=== PATIENT | male | born 1945 | race Caucasian/White ===

== ENCOUNTER → 2021-03-18 12:56 | Outpatient (BNVA) | payer MEDICARE, SELFPAY | PROVIDERS: PCP Family Medicine; Visit Provider Urology | DX: N40.1 Benign prostatic hyperplasia with lower urinary tract symptoms (principal); N13.8 Other obstructive and reflux uropathy; R33.9 Retention of urine, unspecified; R35.1 Nocturia; R97.20 Elevated prostate specific antigen [PSA]; I10 Essential (primary) hypertension | CPT/HCPCS: 51798; 99212 ==

== ENCOUNTER → 2022-03-24 12:59 | Outpatient (BNVA) | payer MEDICARE, SELFPAY | PROVIDERS: PCP Family Medicine; Visit Provider Urology | DX: R33.9 Retention of urine, unspecified (principal); N40.1 Benign prostatic hyperplasia with lower urinary tract symptoms | CPT/HCPCS: 51798; 99212 ==

== ENCOUNTER → 2022-06-16 13:21 | Outpatient (BNVA) | payer MEDICARE, SELFPAY | PROVIDERS: PCP Family Medicine; Visit Provider Urology | DX: N40.1 Benign prostatic hyperplasia with lower urinary tract symptoms (principal); R33.9 Retention of urine, unspecified | CPT/HCPCS: 52000; 99212 ==

== ENCOUNTER 2022-08-03 08:15 | Day surgery (SDC) | payer MEDICARE, SELFPAY ==
[2022-07-29 13:56] VITALS: BMI 25.8
--- NOTE | 2022-07-31 11:49 | HO.ANESPROP2 ---
Documented by User: Earline Choi NP 07/31/22 11:50 HPI - Anesthesia Eval Consult details Narrative: 76yo M for Laser Ablation Prostate w/Green Light PMFSH Active Problems Active Problems: All Active Problems (Updated 03/18/21 @ 13:30 by Randy Jolly MD) Incomplete emptying of bladder (Acute) Elevated PSA (Acute) Benign prostatic hyperplasia with lower urinary tract symptoms (Acute) Past Medical History Medical History Benign prostatic hyperplasia with lower urinary tract symptoms Elevated PSA HTN (hypertension) Incomplete emptying of bladder Lyme disease Meningioma Nocturia Prostatism Surgical History Surgical History (Updated 08/03/22 @ 09:12 by Ginger Hatch RN) History of appendectomy History of back surgery History of surgery History of tonsillectomy and adenoidectomy History of transurethral resection of prostate Hx of breast lump removal Hx of colonoscopy Hx of melanoma excision S/P anal fissurectomy Social History Social History Are you a primary aged or disabled care worker to a significant other at home: No Do you presently have visiting nurse or other home services: No Have you been hit, kicked, punched, or otherwise hurt by someone within the past year? If so, by whom?: No Are you DNR?: No Advance Directives: No Advance Directives Information Provided: Yes (HCP - patients ) Advance Directives on File: No Recently lost weight without trying: No Eating poorly because of decreased appetite: No Nutrition Risks: No Nutritional Risk Meds Allergies Allergy/AdvReac Type Severity Reaction Status Date / Time No Known Allergies Allergy Verified 07/29/22 11:57 Home Medications Medication Instructions Recorded Confirmed Last Taken Type losartan 25 mg tablet 25 mg PO DAILY 03/18/21 07/29/22 08/02/22 History mupirocin 2 % topical ointment 1 appl topical DAILY 03/18/21 08/03/22 08/02/22 History aspirin 81 mg tablet,delayed 81 mg PO DAILY 07/29/22 07/29/22 07/26/22 History release ascorbic acid 1,000 1 tab PO DAILY 08/03/22 08/03/22 07/26/22 History mg-bioflavonoids 100 mg tablet, extended release astaxanthin 4 mg capsule 10 mg PO DAILY 08/03/22 08/03/22 07/26/22 History milk thistle 200 mg capsule 250 mg PO DAILY 08/03/22 08/03/22 07/26/22 History tumeric 100 mg-bucky 150 mg-olive 1 cap PO DAILY 08/03/22 08/03/22 07/26/22 History 50 mg-oreg 150 mg-caprylate capsule vitamin B complx#0-hqzw-CD-vit 1 tab PO DAILY 08/03/22 08/03/22 07/26/22 History C-vit E 100 mg-1 mg-60 mg-5 unit tablet vitamins A,C,F-rqyb-uxkegf 14,320 1 cap PO DAILY 08/03/22 08/03/22 07/26/22 History unit-226 mg-200 unit capsule (PreserVision AREDS) Exam Exam Date and Time: July 31, 2022 1149 Height,Weight and Vital Signs: Height 5 ft 9 in Weight 79.379 kg Assessment and Plan Assessment Anesthesia Assessment: Chart Reviewed Documented by User: Ting Lindo MD 08/03/22 13:30 PMFSH Past Medical History Medical History Benign prostatic hyperplasia with lower urinary tract symptoms Elevated PSA HTN (hypertension) Incomplete emptying of bladder Lyme disease Meningioma Nocturia Prostatism Family History Family history of problems with anesthesia: No Surgical History Surgical History (Updated 08/03/22 @ 09:12 by Ginger Hatch RN) History of appendectomy History of back surgery History of surgery History of tonsillectomy and adenoidectomy History of transurethral resection of prostate Hx of breast lump removal Hx of colonoscopy Hx of melanoma excision S/P anal fissurectomy History of Problems with Anesthesia: No Social History Social History Are you a primary aged or disabled care worker to a significant other at home: No Do you presently have visiting nurse or other home services: No Have you been hit, kicked, punched, or otherwise hurt by someone within the past year? If so, by whom?: No Are you DNR?: No Advance Directives: No Advance Directives Information Provided: Yes (HCP - patients ) Advance Directives on File: No Recently lost weight without trying: No Eating poorly because of decreased appetite: No Nutrition Risks: No Nutritional Risk Meds Allergies Allergy/AdvReac Type Severity Reaction Status Date / Time No Known Allergies Allergy Verified 07/29/22 11:57 Home Medications Medication Instructions Recorded Confirmed Last Taken Type losartan 25 mg tablet 25 mg PO DAILY 03/18/21 07/29/22 08/02/22 History mupirocin 2 % topical ointment 1 appl topical DAILY 03/18/21 08/03/22 08/02/22 History aspirin 81 mg tablet,delayed 81 mg PO DAILY 07/29/22 07/29/22 07/26/22 History release ascorbic acid 1,000 1 tab PO DAILY 08/03/22 08/03/22 07/26/22 History mg-bioflavonoids 100 mg tablet, extended release astaxanthin 4 mg capsule 10 mg PO DAILY 08/03/22 08/03/22 07/26/22 History milk thistle 200 mg capsule 250 mg PO DAILY 08/03/22 08/03/22 07/26/22 History tumeric 100 mg-bucky 150 mg-olive 1 cap PO DAILY 08/03/22 08/03/22 07/26/22 History 50 mg-oreg 150 mg-caprylate capsule vitamin B complx#7-xzbb-XA-vit 1 tab PO DAILY 08/03/22 08/03/22 07/26/22 History C-vit E 100 mg-1 mg-60 mg-5 unit tablet vitamins A,C,S-nksp-dxbpuv 14,320 1 cap PO DAILY 08/03/22 08/03/22 07/26/22 History unit-226 mg-200 unit capsule (PreserVision AREDS) Exam Airway Mallampati Class: III TM Dist: >3cm Neck ROM: Full Heart: rrr Lungs: cta Assessment and Plan Assessment Anesthesia Assessment: Anesthesia Plan Discussed Final Anesthetic Review Family History of Problems with Anesthesia: No History of Problems with Anesthesia: No NPO: Yes ASA Class: II Final Preanesthetic Review: No Changes in Pt Med Stat, Meds/Allgs Chart Reviewed, Consent Obtained/Reviewed and Anes Risks/Benef Reviewed Patient Risk: Low Procedure Risk: Low Anesthetic Plan Anesthetic Plan: GA Disposition: Standard PACU
[2022-08-03] VITALS (7 sets, daily range): BP systolic 158–181; BP diastolic 97–105; PULSE 76–82; RESP 16–20; TEMP 36.6–37; O2SAT 97–100
[2022-08-03] MEDS: Acetaminophen Supp 650 MG SUPP.RECT PR (08:58)
[2022-08-03] MEDS: Lactated Ringers 1,000 ML 100 ML IVCONT (08:58)
--- NOTE | 2022-08-03 12:49 | MHC.SHP ---
Pre-Procedural Eval Section A Date of Service: 08/03/22 The patient is an INPATIENT: No Changes since office visit: No Cold of Flu in the past 2 weeks, No New Medical Problems, No Changes in Medication and No Patient answered all questions The History & Physical has been completed within 30 days and I have reviewed it.: Yes Section B Chief Complaint: bph Details of Present Illness: recurrent BPH Plan for laser prostatectomy Present Medications: see Short Stay Collaborative assessment Medical History: No relevant PMH History of Previous Operations: Relevant previous surgery/procedure and date(s) Allergies: Allergies Allergy/AdvReac Type Severity Reaction Status Date / Time No Known Allergies Allergy Verified 07/29/22 11:57 Review of Systems Sugical H&P ROS: Negative: Constitution, Cardiovascular, Respiratory, Neurological, Psychiatric, Hem-Onc, Allergic/Immunologic, Gastrointestinal, Genitourinary, Musculoskeletal, Integumentary, Endocrine and Eyes/Ears/Nose/Throat Exam Surgical H&P Exam: Normal: HEENT, Normal: Heart, Normal: Lungs, Normal: Extremities, Normal: Abdomen, Normal: Skin and Normal: Neurological Plan Diagnosis/Plan: Unchanged ( recurrent BPH, laser prostatectomy) I have reviewed the history and physical and performed a pertinent physical examination on my patient. No changes have occurred unless specified. Time Spent With Patient Time: Total time managing care of this patient today ____ minutes.
--- NOTE | 2022-08-03 14:36 | W.PM.OPN ---
Operative Note Operative Note Date of Service: 08/03/22 Narrative: PreOperative Diagnosis: Bladder outlet obstruction Post Operative Diagnosis: Bladder outlet obstruction Procedure: GreenLight Laser Enucleation of the prostate Surgeon: Dr Randy Jolly Anesthesia: General Indications for procedure: Regrowth right side History of bladder outlet obstruction. Treated with alpha-ansley and other medications. Still with symptoms. On cystoscopy in office has trilobar prostate. Recommendation for prostate procedure with laser enucleation of prostate. It has been discussed. Focus was placed on development of retrograde examination which is a normal part of this procedure. Procedure: After informed consent was verified the patient was brought to the operating room and placed in a supine position. Anesthesia was administered per protocol. Patient was placed in modified dorsal lithotomy position and prepped and draped in a sterile fashion. Safety pause time-out was confirmed. Antibiotics have been given. Twenty-four Andorran laser cystoscope was inserted per urethra. No abnormalities found the anterior posterior urethra. The bladder was filled on both ureteric orifices were seen in normal position away from our area of interest. Using a GreenLight laser settings of 80 w incisions were made at the 5 and 7 o'clock position. They were taken down and then laterally on each side. They were brought from the bladder neck down to the level of the veru. These defined the lateral aspects of the median lobe area. The median lobe was ablated and enucleated tissue removed. Once the median lobe area had been cleaned attention was directed to the lateral lobes. We started with the patient's left lateral lobe. Firstly the 05:00 o'clock groove was further developed. This was moved in the lateral position to undermine the tissue on the lateral side. Focus was then placed on the laser at the 1 o'clock position in developing a secondary groove down to the level of bladder fibers. The intervening tissue between these 2 grooves was removed with a combination of enucleation ablation working from the apex toward the bladder neck. A similar procedure was repeated on the patient's right-hand side. Right side had significant tissue When this was completed debris and pieces of prostate removed from the bladder. Both ureteric orifices were reviewed again in shown to be patent in away from any areas of energy damage. The apical area was reviewed in any stray ooze was controlled. once bladder was decompressed some bleeding did start. Did seem to be associated with apical neck area. A 22 [place]ran 30 cc balloon Figueroa catheter was placed over stylet into the bladder. Clear efflux was obtained on irrigation. 50 cc was placed in the balloon and gentle traction was placed. A snap was used to hold tension once the patient will be moved and transported. Once transportation its finish this clamp will be removed. He tolerated procedure well was extubated in the operating and transferred in a stable condition to the recovery area. Total Power 335 kW Pathology: Prostate tissue Drains: Figueroa catheter
== END 2022-08-03 16:10 ==
LOC: HO.SSS 08:15
PROVIDERS: PCP Family Medicine; Visit Provider Urology
PROC: (CPT 52648; principal; 2022-08-03 10:50)
DX: N40.1 Benign prostatic hyperplasia with lower urinary tract symptoms (principal); N32.0 Bladder-neck obstruction; R33.9 Retention of urine, unspecified; R97.20 Elevated prostate specific antigen [PSA]; R39.12 Poor urinary stream; I10 Essential (primary) hypertension; Z79.899 Other long term (current) drug therapy; Z87.440 Personal history of urinary (tract) infections
CPT/HCPCS: 52649; 88305; J0330; J1100; J1885; J1956; J2405; J3010

== ENCOUNTER → 2022-08-06 09:24 | Outpatient (BNVA) | payer MEDICARE, SELFPAY | PROVIDERS: PCP Family Medicine; Visit Provider Urology | DX: N40.1 Benign prostatic hyperplasia with lower urinary tract symptoms (principal) | CPT/HCPCS: 51700; 51798 ==

== ENCOUNTER → 2022-09-11 12:55 | Outpatient (BNVA) | payer MEDICARE, SELFPAY | PROVIDERS: PCP Family Medicine; Visit Provider Urology | DX: Z48.816 Encounter for surgical aftercare following surgery on the genitourinary system (principal); N40.1 Benign prostatic hyperplasia with lower urinary tract symptoms; R33.8 Other retention of urine; R97.20 Elevated prostate specific antigen [PSA] | CPT/HCPCS: 51798; 99212 ==

== ENCOUNTER 2023-03-23 10:07 | Outpatient (AMB) | payer MEDICARE, SELFPAY ==
--- NOTE | 2023-03-23 10:07 | A.OFFVIS_ITS ---
Intake Intake Visit Reasons: 6M PSA(set) Intake Note: Patient is present for Telephone PSA Urology Med: Finasteride, Antibiotic Allergy: None Blood Thinner: Aspirin [facility]: [facility] Allergies No Known Allergies Allergy (Verified 03/23/23 10:09) Medication List - Last Reconciled 03/23/23 by Randy Jolly MD ascorbic acid-bioflavonoids 1,000-100 mg 1 tab PO DAILY aspirin 81 mg PO DAILY astaxanthin 10 mg PO DAILY losartan 25 mg PO DAILY milk thistle 250 mg PO DAILY mupirocin 2% 1 appl topical DAILY tramadol 50 mg PO Q6H PRN ksxinhi-lvsq-hdllw-oreg-capryl 100 mg-150 mg- 50 mg-150 mg 1 cap PO DAILY vit B cmplx #2-tagl-NK-vitC,E 100-1-60-5 td-iq-fr-unit 1 tab PO DAILY vitamins A,C,H-ujaj-ecjmhx 4,296 mcg-226 mg-90 mg (PreserVision AREDS) 1 cap PO DAILY HPI HPI Comments History of Present Illness Details Mr Sainz is a very pleasant male. He is a patient of . He is seen for the following urologic conditions. - lower urinary tract symptoms Telemedicine Evaluation 15 min Consultation [employer] Video attempted Six month follow-up PSA 03/10 0.3 Information provided regarding pelvic floor therapy He will be following up with urologist closer to where he is currently living Lower Urinary Tract Symptoms:? Current visit is for?Happy with his current urinary performance ?- Initial diagnosis after retention following spinal surgery with Dr Coburn October 2013 ?- Prior history of recurrent UTI ?- TRUS biopsy in 2006 and 2012 for elevated PSA.? Current treatment includes?observation.? Prior treatments include?procedure, TURP 06/01, GLP 07/10 ? Prostate Symptom Score?Mild (0-8), Bother 2.? Symptoms include?incomplete emptying, weak stream, and are stable.? Prior Prostate Score?mild.? PSA?PSA 05/31 4.68, ?12/31 1.73, 04/04 2.0, 10/03 2.1, 10/04 1.7, 01/06 1.5, 03/09 1.7 ? Prostate volume?30-50gm.? Testing at next visit will include?Prostate Symptom Score, uroflow, bladder scan.? Treatment plan?- 12m f/u PFS Medical History Benign prostatic hyperplasia with lower urinary tract symptoms Elevated PSA HTN (hypertension) Incomplete emptying of bladder Lyme disease Meningioma Nocturia Prostatism Surgical History History of appendectomy History of back surgery History of surgery History of tonsillectomy and adenoidectomy History of transurethral resection of prostate Hx of breast lump removal Hx of colonoscopy Hx of melanoma excision S/P anal fissurectomy Social History Are you a primary technical healthcare consultant to a significant other at home: No Do you presently have visiting nurse or other home services: No Review of Systems Const All systems reviewed & are unremarkable except as noted in HPI and below Reports no additional complaints Resp Reports no additional complaints GI Reports no additional complaints Reports as per HPI Musc Reports no additional complaints Physical Exam Telemedicine evaluation Appropriate responses Regular breathing rate and rhythm HEENT Head: Yes normal to inspection Ears: hearing grossly normal bilaterally Eyes General: appearance normal, both eyes and all related structures Neck Neck: Yes normal visual inspection Chest Chest palpation & inspection: normal inspection of the chest Resp Effort & Inspection: normal respiratory effort and able to speak in complete sentences Assessment & Plan Assessment & Plan (1) Benign prostatic hyperplasia with lower urinary tract symptoms: Code(s): N40.1 - Benign prostatic hyperplasia with lower urinary tract symptoms Plan P.r.n. follow-up Pelvic floor exercises provided Medications: Discontinued ciprofloxacin HCl Discontinued Reason: Patient Completed Course 250 mg PO DAILY 5 days 5 tabs 0RF tranexamic acid Discontinued Reason: Doctor's Order 650 mg PO BID 5 days 10 tabs 0RF finasteride Discontinued Reason: Patient Completed Course 5 mg PO DAILY 90 days 90 tabs 0RF N32.0 - Bladder-neck obstruction, N40.1 - Benign prostatic hyperplasia with lower urinary tract symptoms Patient Instructions: Imaging studies, laboratory and physical exam results were discussed and reviewed in detail. No major barriers to patient understanding were identified. An opportunity to ask questions regarding the treatment plan was provided. All questions were answered. The patient expressed understanding and agreement with the above treatment plan. The patient is aware they should contact our office by phone for worsening of their current condition or the appearance of new urologic symptoms. Compliance is encouraged with any medications and followup testing that is ordered. It is a privilege to participate in the urologic care of your patient. If you have any questions or concerns regarding treatment for the above conditions, or other urologic issues, please do not hesitate to contact me. The office telephone contact is [phone]. This note is constructed using voice recognition software. While every effort has been made to ensure accuracy model maker firearms errors may have been included. Yours sincerely, Dr Randy Jolly MD, [facility] - Urology Providers of Expert, Compassionate Care for the Genitourinary System Telehealth Telehealth Location of provider rendering services: practice address Location of patient: address on file Patient Identification confirmed using: Name, : Yes Telehealth method: video Patient verbally consented to treatment: Yes Patient verbally consented to billing insurance company: Yes Patient informed of any privacy concerns related to visit: Yes Coding Level of Care Code Tele Est Pt Level 3 (88442) Diagnoses Benign prostatic hyperplasia with lower urinary tract symptoms N40.1
== END 2023-03-23 10:48 | disposition home or self-care (01) ==
LOC: HO.HUSH 10:07
PROVIDERS: PCP Family Medicine; Visit Provider Urology
DX: N40.1 Benign prostatic hyperplasia with lower urinary tract symptoms (principal)
CPT/HCPCS: 99213

== ENCOUNTER → 2023-03-23 10:07 | Outpatient (BNVA) | payer MEDICARE, SELFPAY | PROVIDERS: PCP Family Medicine; Visit Provider Urology ==